=== PATIENT | male | born 1975 ===

== ENCOUNTER 2021-09-07 04:11 | Observation (INO) | payer SELFPAY ==
[2021-09-07] MEDS ORDERED: Lactated Ringers 1,000 ML IV STA ×2 (04:38→05:55)
[2021-09-07 05:09] LABS: BLOOD UREA NITROGEN,BUN 9 mg/dL (7.0-18.0); CHLORIDE,CL 96 mmol/L (98-107); GLUCOSE RANDOM 163 mg/dL (74-106); LIPASE 41 U/L (73-393); POTASSIUM,K 3.7 mmol/L (3.5-5.1); SODIUM,NA 136 mmol/L (136-148)
[2021-09-07] MEDS ORDERED: Magnesium Sulfate/Water 2 GM in Premix Bag 1 BAG IV ONE (05:36)
[2021-09-07] MEDS ORDERED: Iopamidol 755 MG/ML 500 ML Multipack Bottle IVPUSH ONE (05:51)
[2021-09-07] MEDS ORDERED: Morphine 4 MG/ML VIAL IVPUSH ONE (06:52)
[2021-09-07] MEDS ORDERED: Ketorolac 30 MG/ML SDV IVPUSH ONE (09:56)
[2021-09-07] MEDS ORDERED: fentaNYL 50 MCG/ML SDV IVPUSH ONE (09:56)
[2021-09-07] MEDS ORDERED: Ondansetron 4 MG/2 ML SDV IVPUSH ONE (09:57)
[2021-09-07] MEDS ORDERED: Piperacillin/Tazobactam 3.375 GM in Sodium Chloride 0.9% 50 ML IV ONE (10:48)
[2021-09-07] MEDS ORDERED: fentaNYL 50 MCG/ML SDV IVPUSH PRN (11:34)
[2021-09-07] MEDS ORDERED: Ondansetron 4 MG/2 ML SDV IVPUSH PRN ×2 (11:35→18:19)
[2021-09-07] MEDS ORDERED: Ketorolac 30 MG/ML SDV IVPUSH PRN (11:36)
[2021-09-07] MEDS ORDERED: Lactated Ringers 1,000 ML IV ONE (11:37)
[2021-09-07] MEDS ORDERED: Lactated Ringers 1,000 ML IV SCH (13:15)
[2021-09-07] MEDS ORDERED: Propofol 200 MG/20 ML SDV ONE (13:36)
[2021-09-07] MEDS ORDERED: fentaNYL 250 MCG/5 ML SDV ONE ×2 (13:37→14:46)
[2021-09-07] MEDS ORDERED: Bupivacaine 0.25%/EPINEPHrine 1:200,000 10 ML SDV ONE (13:38)
[2021-09-07] MEDS ORDERED: Famotidine 20 MG/2 ML SDV ONE (13:38)
[2021-09-07] MEDS ORDERED: Octyl 2-Cyanoacrylate 1 Tube ONE (13:39)
[2021-09-07] MEDS ORDERED: fentaNYL 100 MCG/2 ML SDV ONE ×4 (15:02→16:25)
[2021-09-07] MEDS ORDERED: Succinylcholine/Sod PF 100 MG/5 ML SYRINGE IV ONE (17:17)
[2021-09-07] MEDS ORDERED: Dexamethasone 4 MG/ML 5 ML MDV ONE (17:17)
[2021-09-07] MEDS ORDERED: Sugammadex Sodium 200 MG/2 ML VIAL ONE (17:17)
[2021-09-07] MEDS ORDERED: Rocuronium Bromide 50 MG/5 ML Syringe ONE (17:17)
[2021-09-07] MEDS ORDERED: Ondansetron 4 MG/2 ML SDV ONE (17:17)
[2021-09-07] MEDS ORDERED: HYDROmorphone 2 MG/ML Syringe ONE (17:24)
[2021-09-07] MEDS ORDERED: Morphine 4 MG/ML VIAL IVPUSH PRN (18:18)
[2021-09-07] MEDS ORDERED: HYDROmorphone 2 MG Tab PO PRN (18:19)
[2021-09-07] MEDS ORDERED: Albuterol 0.083% 2.5 MG/3 ML Neb Soln NEB PRN (18:23)
[2021-09-07] MEDS ORDERED: HYDROmorphone 1 MG/ML Syringe IVPUSH PRN (18:23)
[2021-09-07] MEDS ORDERED: Naloxone 0.4 MG/ML SDV IVPUSH PRN (18:23)
[2021-09-07] MEDS ORDERED: Metoclopramide 10 MG/2 ML SDV IVPUSH PRN (18:23)
[2021-09-07] MEDS: Piperacillin/Tazobactam 3.375 GM in Sodium Chloride 0.9% 50 ML IV SCH (19:11)
[2021-09-07] MEDS: Lactated Ringers 1,000 ML IV SCH (20:42)
[2021-09-08] MEDS: Piperacillin/Tazobactam 3.375 GM in Sodium Chloride 0.9% 50 ML IV SCH ×2 (02:16→11:00)
[2021-09-08] MEDS: Lactated Ringers 1,000 ML IV SCH (05:05)
[2021-09-08] MEDS ORDERED: Lisinopril 10 MG Tab PO ONE ×2 (11:13→13:41)
[2021-09-08 13:00] LABS: BLOOD UREA NITROGEN,BUN 10 mg/dL (7.0-18.0); CARBON DIOXIDE,CO2 28.4 mmol/L (21.0-32.0); CHLORIDE,CL 103 mmol/L (98-107); GLUCOSE RANDOM 109 mg/dL (74-106); POTASSIUM,K 4.2 mmol/L (3.5-5.1); SODIUM,NA 140 mmol/L (136-148)
[2021-09-08 13:40] LABS: HEMOGLOBIN A1C 4.9 %
== END 2021-09-08 14:30 | disposition home or self-care (01) ==
LOC: MW.ED 04:11 → MW.MS 11:33
PROVIDERS: ADMIT Surgery; ATTEND Surgery
DX: K80.12 Calculus of gallbladder with acute and chronic cholecystitis without obstruction (principal); Z01.812 Encounter for preprocedural laboratory examination; Z20.822 Contact with and (suspected) exposure to COVID-19
CPT/HCPCS: 36415; 47562; 74174; 76705; 80053; 80061; 83036; 83605; 83690; 83735; 85025; 85610; 87040; 87635; 96361; 96365; 96366; 96367; 96375; 99285; A9270; J0330; J0690; J1100; J1170; J2270; J2405; J2543; J2704; J3010; J3475; J3490; J7030; J7120; Q9967; 00790; U0002